=== PATIENT | male | born 1995 | race Caucasian/White ===

== ENCOUNTER 2017-06-21 15:00 | Outpatient (RCR) | payer BC, OTHER ==
[2017-06-07 09:16] VITALS: BP 124/77
[2017-06-07 09:23] VITALS: BP 102/68
[2017-06-07 09:25] LABS: PLATELET COUNT, AUTOMATED 279 K/uL (150-450)
--- NOTE | 2017-06-07 10:20 | RADIOLOGY IMAGING REPORT ---
FACILITY: [facility] PATIENT NAME: Chang Humphrey : 1995 MR: [id number] V: [id number] EXAM DATE: ORDERING PHYSICIAN: SIMA MACHADO TECHNOLOGIST: Location: [facility] [place] Patient: Chang Humphrey : 1995 Visit/Account:[id number] Date of Sevice: 06/07/2017 Exam type: CHEST PA AND LAT History: Testicular cancer follow-up Comparison: August 09, 2016 Findings: The lungs are free of acute effusions, infiltrates or edema. The cardiac silhouette is normal in siz e. The trachea is in midline.. Visualized bones are unremarkable IMPRESSION: 1. No acute cardiac pulmonary process is seen Report Dictated By: Cecelia Herbert MD at 06/07/2017 10:14 AM Report E-Signed By: Cecelia Herbert MD at 06/07/2017 10:15 AM WSN:[email or web address]
--- NOTE | 2017-06-07 10:54 | RADIOLOGY IMAGING REPORT ---
FACILITY: [facility] [place] PATIENT NAME: Chang Humphrey : 1995 MR: [id number] V: [id number] EXAM DATE: ORDERING PHYSICIAN: SIMA MACHADO TECHNOLOGIST: Location: [facility] - [place] Patient: Chang Humphrey : 1995 Visit/Account:[id number] Date of Sevice: 06/07/2017 ABDOMEN/PELVIS W/WO CONTRAST HISTORY: Testicular cancer TECHNIQUE: Axial images acquired through the abdomen/pelvis both with and without IV contrast.. Margarita nal and sagittal reformatting also performed. Dose Lowering Technique One of the following dose optimization techniques was utilized in the performance of this exam: Autom ated exposure control; adjustment of the mA and/or kV according to the patient's size; or use of an i terative reconstruction technique. Specific details can be referenced in the facility's radiology C T exam operational policy. CONTRAST: 75 mL Isovue-370 COMPARISON: None. FINDINGS: Visualized lung bases: Negative. Hepatobiliary: Negative. Spleen: Negative. Adrenals: Negative. Pancreas: Negative. Kidneys ureters and bladder: Negative. Genitalia: Negative. GI: Negative. Vessels/spaces/nodes: There are several shotty mesenteric lymph nodes . there are small fatty replaced bilateral inguinal lymph nodes. Bones/soft tissues: There is a surgical incision in the anterior lower left pelvis likely from prior orchiectomy no aggressive appearing bone lesions are seen Additional findings: None pertinent. IMPRESSION: There are several nonspecific shotty mesenteric lymph nodes. Also noted are small fatty replaced ing uinal lymph nodes No CT evidence of metastatic disease at this time Report Dictated By: Cecelia Herbert MD at 06/07/2017 10:41 AM Report E-Signed By: Cecelia Herbert MD at 06/07/2017 10:51 AM WSN:[email or web address]
[~2017-06-21 15:00] MED LIST: ALLO100T70 PO; DEX4 PO; IOPAMIDOL 76% 75 ML INFUS BTL 75 ML ONE; LOR1 PO; LORA-1455 PO; ONDA8TAB91 PO; PROC10TA4 PO
[2017-06-21 15:13] VITALS: BP 118/75
--- NOTE | 2017-06-23 16:50 | ONCOLOGY FOLLOW UP NOTE ---
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 ONCOLOGY HISTORY The patient is a 21-year-old male who presented with four month history of left testicular swelling. He had an ultrasound of the testicle done on March 17, 2016 which was positive for markedly enlarged and large complex neoplasm appearing lesion in the left testis measuring 7.7 x 5.8 x 4.7 cm. The right testicle measured 4.2 x 2.9 x 2.1 cm. The patient had a CT of chest, abdomen and pelvis done on March 21, 2016 and was notable for tiny nodules in the left lower lobe and right upper lobe, 2 to 3 mm in size. Tumor markers showed beta HCG 16.6, alpha fetoprotein normal; LDH was 507, elevated. 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 The tumor measured 6.8 cm in the greatest dimension and was confined with the testis. Lymphovascular invasion was positive. Tumor did not penetrate the tunica albuginea, tunica vaginalis or spermatic cord and surgical margins were free. PET-CT scan done on April 28, 2016 was negative for systemic metastasis. There was mild increased continuous metabolic activity in the face and left back , which is probably inflammatory in nature given he has acne. The patient started chemotherapy with BEP with bleomycin, etoposide and cisplatinum on May 01, 2016 with plan of one cycle. HISTORY OF PRESENT ILLNESS Patient is here today for follow-up of his mixed germ cell tumor. He is doing very well currently. He has some muscle aches after playing soccer yesterday, but other than that he is totally asymptomatic. PAST SURGICAL HISTORY 1. Left orchiectomy on March 21, 2016. 2. [place] tooth extraction. FAMILY HISTORY Paternal grandfather had prostate cancer. SOCIAL HISTORY The patient is single. He is a student. He is studying [employer]. He denies any abuse of tobacco, alcohol or illicit drugs. CURRENT MEDICATIONS None. ALLERGIES None. PAST MEDICAL HISTORY Insignificant. REVIEW OF SYSTEMS CONSTITUTIONAL: No appetite or weight change. No fever, chills or sweating. No recent infection. HEENT: Ears: No tinnitus or hearing problem. Nose: No nasal discharge or epistaxis. Throat: No sore throat or mouth ulcers. Eyes: No diplopia or visual changes. RESPIRATORY: No shortness of breath. No cough, expectoration or hemoptysis. CARDIOVASCULAR: No chest pain, orthopnea, or paroxysmal nocturnal dyspnea (PND) . No edema. No palpitations. GASTROINTESTINAL: No nausea or vomiting. No diarrhea or constipation. No change in bowel movements. No heartburn or swallowing difficulties. No abdominal pain. No jaundice. No hematemesis, melena or rectal bleeding. GENITOURINARY: No hematuria or dysuria. MUSCULOSKELETAL: No pain in the muscles, joints or bones. He has muscle aches after playing soccer yesterday. NEUROLOGICAL: No tingling or numbness in the hands or feet. No headaches or convulsions. HEMATOLOGIC/LYMPHATIC: No bleeding or easy bruising. No weakness or fatigue. No enlarged lymph nodes. SKIN: No skin rash or lumps. PSYCHIATRIC: No anxiety or depression. PHYSICAL EXAMINATION GENERAL: Looks stable. Well-developed, well-nourished, and in no acute distress. VITAL SIGNS: Blood pressure 118/75, pulse 101 per minute, respirations 16 per minute, temperature 98.8, pulse ox 94% on room air. HEENT: Head: Atraumatic. No sinus tenderness to palpation. Eyes: No icterus or conjunctivitis. Mouth and throat: No oral thrush or mucositis. NECK: Supple. No cervical or supraclavicular lymphadenopathy. LUNGS: Clear to auscultation and percussion bilaterally. HEART: Regular rate and rhythm. No gallops, murmurs, clicks or rubs. ABDOMEN: Soft and lax. No tenderness. No hepatosplenomegaly. No masses. EXTREMITIES: No cyanosis, clubbing or edema. LYMPHATICS: No peripheral lymphadenopathy. NEUROLOGICAL: Conscious, alert and oriented times three. No focal motor or sensory deficits. PSYCHIATRIC: Mood and affect appear normal. SKIN: No skin rash, bruise or purpuric eruption. DIAGNOSTIC DATA CBC showed a white count of 8.2, hemoglobin 16.8, hematocrit 48.9% and platelets 279,000. Chem panel totally normal except for total protein of 8.4. Alpha-fetoprotein is normal at 1 and Beta HCG is less than 2. 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 Tumor size was 6.8 cm with positive lymphovascular invasion with microscopic extension into the hilar soft tissue and the right testis noted focally. All margins were free of malignancy and the tumor was in the left testicle. The tumor marker with beta HCG was high at 16.6. The LDH was high at 517. Alpha-fetoprotein was normal. After surgery the markers returned back to normal. Because of the lymphovascular invasion the patient received one cycle of BEP with bleomycin, etoposide and cisplatin. Patient received that cycle on May 01, 2016 through May 05, 2016. He tolerated the chemo very well. His current tumor markers with beta HCG and alpha-fetoprotein are within the normal range. I am planning to continue followup. I will see him again in three months with CBC, chem panel, alpha-fetoprotein, beta HCG and LDH. PLAN 1. Continue followup. 2. Patient to return in three months with CBC, chem panel, alpha-fetoprotein, LDH and beta hCG. 3. Patient is to contact us for any new concern or complaints. ADDENDUM: CT abdomen and pelvis done on June 07, 2017 showed nonspecific shotty mesenteric lymph nodes. There are also noted small inguinal lymph nodes. Other than that the CT scan is normal. MTDD
== END 2017-06-29 14:50 | disposition home or self-care (01) ==
LOC: ONC 15:00
PROVIDERS: ATTEND Internal Medicine Hematology
DX: C62.92 Malignant neoplasm of left testis, unspecified whether descended or undescended (principal); Z92.21 Personal history of antineoplastic chemotherapy
CPT/HCPCS: 36415; 71046; 74178; 82105; 83615; 84702; 85025; 99212; Q9967; 82040; 82247; 82310; 82374; 82435; 82565; 82947; 84075; 84132; 84155; 84295; 84450; 84460; 84520

== ENCOUNTER 2017-10-05 08:00 | Outpatient (RCR) | payer BC, OTHER ==
[2017-09-25 08:38] VITALS: BP 118/81
[2017-09-25 09:01] LABS: PLATELET COUNT, AUTOMATED 270 K/uL (150-450)
[~2017-10-05 08:00] MED LIST changes: -IOPAMIDOL 76% 75 ML INFUS BTL 75 ML ONE
[2017-10-05 08:18] VITALS: BP 123/72
--- NOTE | 2017-10-05 16:12 | ONCOLOGY FOLLOW UP NOTE ---
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 ONCOLOGY HISTORY The patient is a 21-year-old male who presented with four month history of left testicular swelling. He had an ultrasound of the testicle done on March 17, 2016 which was positive for markedly enlarged and large complex neoplasm appearing lesion in the left testis measuring 7.7 x 5.8 x 4.7 cm. The right testicle measured 4.2 x 2.9 x 2.1 cm. The patient had a CT of chest, abdomen and pelvis done on March 21, 2016 and was notable for tiny nodules in the left lower lobe and right upper lobe, 2 to 3 mm in size. Tumor markers showed beta HCG 16.6, alpha fetoprotein normal; LDH was 507, elevated. 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 The tumor measured 6.8 cm in the greatest dimension and was confined with the testis. Lymphovascular invasion was positive. Tumor did not penetrate the tunica albuginea, tunica vaginalis or spermatic cord and surgical margins were free. PET-CT scan done on April 28, 2016 was negative for systemic metastasis. There was mild increased continuous metabolic activity in the face and left back , which is probably inflammatory in nature given he has acne. The patient started chemotherapy with BEP with bleomycin, etoposide and cisplatinum on May 01, 2016 with plan of one cycle. HISTORY OF PRESENT ILLNESS Patient is here today for follow-up of his mixed germ cell tumor. He is doing fine currently and he is totally asymptomatic. PAST MEDICAL HISTORY Insignificant, except for mixed germ cell tumor. PAST SURGICAL HISTORY 1. Left orchiectomy on March 21, 2016. 2. [place] tooth extraction. FAMILY HISTORY Paternal grandfather had prostate cancer. SOCIAL HISTORY The patient is single. 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 He denies any abuse of tobacco, alcohol or illicit drugs. CURRENT MEDICATIONS None. ALLERGIES None. REVIEW OF SYSTEMS CONSTITUTIONAL: No appetite or weight change. No fever, chills or sweating. No recent infection. HEENT: Ears: No tinnitus or hearing problem. Nose: No nasal discharge or epistaxis. Throat: No sore throat or mouth ulcers. Eyes: No diplopia or visual changes. RESPIRATORY: No shortness of breath. No cough, expectoration or hemoptysis. CARDIOVASCULAR: No chest pain, orthopnea, or paroxysmal nocturnal dyspnea (PND) . No edema. No palpitations. GASTROINTESTINAL: No nausea or vomiting. No diarrhea or constipation. No change in bowel movements. No heartburn or swallowing difficulties. No abdominal pain. No jaundice. No hematemesis, melena or rectal bleeding. GENITOURINARY: No hematuria or dysuria. MUSCULOSKELETAL: No pain in the muscles, joints or bones. He has muscle aches after playing soccer yesterday. NEUROLOGICAL: No tingling or numbness in the hands or feet. No headaches or convulsions. HEMATOLOGIC/LYMPHATIC: No bleeding or easy bruising. No weakness or fatigue. No enlarged lymph nodes. SKIN: No skin rash or lumps. PSYCHIATRIC: No anxiety or depression. PHYSICAL EXAMINATION GENERAL: Looks stable. Well-developed, well-nourished, and in no acute distress. VITAL SIGNS: Blood pressure 123/72, pulse 75 per minute, respirations 16 per minute, temperature 98.1, pulse ox 95% on room air. HEENT: Head: Atraumatic. No sinus tenderness to palpation. Eyes: No icterus or conjunctivitis. Mouth and throat: No oral thrush or mucositis. NECK: Supple. No cervical or supraclavicular lymphadenopathy. LUNGS: Clear to auscultation and percussion bilaterally. HEART: Regular rate and rhythm. No gallops, murmurs, clicks or rubs. ABDOMEN: Soft and lax. No tenderness. No hepatosplenomegaly. No masses. EXTREMITIES: No cyanosis, clubbing or edema. LYMPHATICS: No peripheral lymphadenopathy. NEUROLOGICAL: Conscious, alert and oriented times three. No focal motor or sensory deficits. PSYCHIATRIC: Mood and affect appear normal. SKIN: No skin rash, bruise or purpuric eruption. DIAGNOSTIC DATA CBC showed a white count of 8.4, hemoglobin 16.7, hematocrit 47.8, platelets 270 ,000. Chem panel totally normal except. Alpha-fetoprotein is normal at 2, Beta HCG is normal at less than 2 and LDH is normal at 340. 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 Tumor measured was 6.8 cm in the greatest dimension and was confined to the testis. Lymphovascular invasion was positive. Tumor did not penetrate the tunica albuginea, tunica vaginalis or spermatic cord and surgical margins were free. Patient received one cycle of BEP with bleomycin, etoposide and cisplatin after his surgery because of the lymphovascular invasion. He received that cycle between May 01, 2016 through May 05, 2016. He is doing very well currently. His tumor marker with LDH, beta HCG and alpha fetoprotein all came within the normal range. I am planning to continue followup. I will see him again in three months with CBC , chem panel, alpha-fetoprotein, beta HCG and LDH. PLAN 1. Continue followup. 2. Patient to return in three months with CBC, chem panel, alpha-fetoprotein, LDH and beta hCG. 3. Patient is to contact us for any new concern or complaints. ZINA
== END 2017-10-09 14:22 | disposition home or self-care (01) ==
LOC: ONC 08:00
PROVIDERS: ATTEND Internal Medicine Hematology
DX: C62.92 Malignant neoplasm of left testis, unspecified whether descended or undescended (principal); Z92.21 Personal history of antineoplastic chemotherapy
CPT/HCPCS: 36415; 82040; 82105; 82247; 82310; 82374; 82435; 82565; 82947; 83615; 84075; 84132; 84155; 84295; 84450; 84460; 84520; 84702; 85025; 99212

== ENCOUNTER 2018-01-18 14:55 | Outpatient (RCR) | payer BC, OTHER ==
[2018-01-09 09:17] VITALS: BP 122/78
[2018-01-09 09:21] LABS: PLATELET COUNT, AUTOMATED 281 K/uL (150-450)
[2018-01-18 15:06] VITALS: BP 132/90
--- NOTE | 2018-01-19 19:50 | ONCOLOGY FOLLOW UP NOTE ---
EVENT DATE: January 18, 2018 DIAGNOSIS Stage I (pT2 pNX cM0) mixed germ cell tumor. 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 ONCOLOGY HISTORY The patient is a 22-year-old male who presented with a four-month history of left testicular swelling. He had an ultrasound of the testicle done on March 17, 2016, which was positive for markedly enlarged and large complex neoplasm- appearing lesion in the left testis measuring 7.7 x 5.8 x 4.7 cm. The right testicle measured 4.2 x 2.9 x 2.1 cm. The patient had a CT of chest, abdomen, and pelvis done on March 21, 2016, and it was notable for tiny nodules in the left lower lobe and right upper lobe, 2 to 3 mm in size. Tumor markers showed beta hCG 16.6, alpha-fetoprotein normal. LDH was 507, elevated. 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 The tumor measured 6.8 cm in the greatest dimension and was confined with the testis. Lymphovascular invasion was positive. Tumor did not penetrate the tunica albuginea, tunica vaginalis, or spermatic cord, and surgical margins were free. PET/CT scan done on April 28, 2016, was negative for systemic metastasis. There was mild increased continuous metabolic activity in the face and left back which was probably inflammatory in nature given he has acne. The patient started chemotherapy with BEP with bleomycin, etoposide, and cisplatinum on May 01, 2016, with plan of one cycle. HISTORY OF PRESENT ILLNESS Patient is here today for followup of his mixed germ cell tumor. He is doing fine currently, and he is totally asymptomatic today. PAST MEDICAL HISTORY Insignificant except for mixed germ cell tumor. PAST SURGICAL HISTORY 1. Left orchiectomy on March 21, 2016. 2. [place] tooth extraction. FAMILY HISTORY Paternal grandfather had prostate cancer. SOCIAL HISTORY The patient is single. He is a student. He is studying [employer]. He denies any abuse of tobacco, alcohol, or illicit drugs. CURRENT MEDICATIONS None. ALLERGIES None. REVIEW OF SYSTEMS CONSTITUTIONAL: No appetite or weight change. No fever, chills, or sweating. No recent infection. HEENT: Ears: No tinnitus or hearing problem. Nose: No nasal discharge or epistaxis. Throat: No sore throat or mouth ulcers. Eyes: No diplopia or visual changes. RESPIRATORY: No shortness of breath. No cough, expectoration, or hemoptysis. CARDIOVASCULAR: No chest pain, orthopnea, or paroxysmal nocturnal dyspnea (PND). No edema. No palpitations. GASTROINTESTINAL: No nausea or vomiting. No diarrhea or constipation. No change in bowel movements. No heartburn or swallowing difficulties. No abdominal pain. No jaundice. No hematemesis, melena, or rectal bleeding. GENITOURINARY: No hematuria or dysuria. MUSCULOSKELETAL: No pain in the muscles, joints, or bones. NEUROLOGICAL: No tingling or numbness in the hands or feet. No headaches or convulsions. HEMATOLOGIC/LYMPHATIC: No bleeding or easy bruising. No weakness or fatigue. No enlarged lymph nodes. SKIN: No skin rash or lumps. PSYCHIATRIC: No anxiety or depression. PHYSICAL EXAMINATION GENERAL: Looks stable. Well developed, well nourished, and in no acute distress. VITAL SIGNS: Blood pressure 132/80, pulse 98 per minute, respirations 16 per minute, temperature 98.5, pulse oximetry 94% on room air. HEENT: Head: Atraumatic. No sinus tenderness to palpation. Eyes: No icterus or conjunctivitis. Mouth and throat: No oral thrush or mucositis. NECK: Supple. No cervical or supraclavicular lymphadenopathy. LUNGS: Clear to auscultation and percussion bilaterally. HEART: Regular rate and rhythm. No gallops, murmurs, clicks, or rubs. ABDOMEN: Soft and lax. No tenderness. No hepatosplenomegaly. No masses. EXTREMITIES: No cyanosis, clubbing, or edema. LYMPHATICS: No peripheral lymphadenopathy. NEUROLOGICAL: Conscious, alert, and oriented times three. No focal motor or sensory deficits. PSYCHIATRIC: Mood and affect appear normal. SKIN: No skin rash, bruise, or purpuric eruption. DIAGNOSTIC DATA CBC showed white count 7.7, hemoglobin 16.8, hematocrit 48, platelets 251. Chem panel totally normal except BUN 22. Alpha-fetoprotein is 1. hCG has risen, too. Both abnormal. 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 Tumor measured 6.8 cm in the greatest dimension and was confined to the testis. Lymphovascular invasion was positive. Tumor did not penetrate the tunica albuginea, tunica vaginalis, or spermatic cord, and surgical margins were free. Patient received one cycle of BEP with bleomycin, etoposide, and cisplatin after his surgery because of the lymphovascular invasion. He received that cycle between May 01, 2016, through May 05, 2016. He is currently in complete remission. His tumor markers with LDH, beta hCG, and alpha-fetoprotein are all within the normal range. I am planning to continue followup. I will see him again in three months with CBC, chemistry panel, alpha-fetoprotein, LDH, and beta hCG. PLAN 1. Continue followup. 2. Patient to return in three months with CBC, chem panel, alpha-fetoprotein, LDH, and beta hCG. 3. Patient is to contact us for any new concerns or complaints. ZINA
== END 2018-01-30 08:39 | disposition home or self-care (01) ==
LOC: ONC 14:55
PROVIDERS: ATTEND Internal Medicine Hematology
DX: C62.92 Malignant neoplasm of left testis, unspecified whether descended or undescended (principal); Z92.21 Personal history of antineoplastic chemotherapy
CPT/HCPCS: 36415; 82040; 82105; 82247; 82310; 82374; 82435; 82565; 82947; 83615; 84075; 84132; 84155; 84295; 84450; 84460; 84520; 84702; 85025; 99212

== ENCOUNTER 2018-05-03 09:30 | Outpatient (RCR) | payer BC, OTHER ==
[2018-04-25 13:12] VITALS: BP 132/76
[2018-04-25 13:37] LABS: PLATELET COUNT, AUTOMATED 312 K/uL (150-450)
[2018-05-03 09:38] VITALS: BP 122/75
--- NOTE | 2018-05-03 12:37 | [facility] ONCOLOGY NOTE ---
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 ONCOLOGY HISTORY The patient is a 22-year-old male who presented with a four-month history of left testicular swelling. He had an ultrasound of the testicle done on March 17, 2016, which was positive for markedly enlarged and large complex neoplasm- appearing lesion in the left testis measuring 7.7 x 5.8 x 4.7 cm. The right testicle measured 4.2 x 2.9 x 2.1 cm. The patient had a CT of chest, abdomen, and pelvis done on March 21, 2016, and it was notable for tiny nodules in the left lower lobe and right upper lobe, 2 to 3 mm in size. Tumor markers showed beta hCG 16.6, alpha-fetoprotein normal. LDH was 507, elevated. 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 The tumor measured 6.8 cm in the greatest dimension and was confined with the testis. Lymphovascular invasion was positive. Tumor did not penetrate the tunica albuginea, tunica vaginalis, or spermatic cord, and surgical margins were free. PET/CT scan done on April 28, 2016, was negative for systemic metastasis. There was mild increased continuous metabolic activity in the face and left back which was probably inflammatory in nature given he has acne. The patient started chemotherapy with BEP with bleomycin, etoposide, and cisplatinum on May 01, 2016, with plan of one cycle. HISTORY OF PRESENT ILLNESS Patient is here today for followup of his mixed germ cell tumor. He is doing fine currently and he is totally asymptomatic today. PAST MEDICAL HISTORY Insignificant except for mixed germ cell tumor. PAST SURGICAL HISTORY 1. Left orchiectomy on March 21, 2016. 2. [place] tooth extraction. FAMILY HISTORY Paternal grandfather had prostate cancer. SOCIAL HISTORY The patient is single. He is a student. He is studying business [employer] He denies any abuse of tobacco, alcohol, or illicit drugs. CURRENT MEDICATIONS None. ALLERGIES None. REVIEW OF SYSTEMS CONSTITUTIONAL: No appetite or weight change. No fever, chills, or sweating. No recent infection. HEENT: Ears: No tinnitus or hearing problem. Nose: No nasal discharge or epistaxis. Throat: No sore throat or mouth ulcers. Eyes: No diplopia or visual changes. RESPIRATORY: No shortness of breath. No cough, expectoration, or hemoptysis. CARDIOVASCULAR: No chest pain, orthopnea, or paroxysmal nocturnal dyspnea (PND). No edema. No palpitations. GASTROINTESTINAL: No nausea or vomiting. No diarrhea or constipation. No change in bowel movements. No heartburn or swallowing difficulties. No abdominal pain. No jaundice. No hematemesis, melena, or rectal bleeding. GENITOURINARY: No hematuria or dysuria. MUSCULOSKELETAL: No pain in the muscles, joints, or bones. NEUROLOGICAL: No tingling or numbness in the hands or feet. No headaches or convulsions. HEMATOLOGIC/LYMPHATIC: No bleeding or easy bruising. No weakness or fatigue. No enlarged lymph nodes. SKIN: No skin rash or lumps. PSYCHIATRIC: No anxiety or depression. PHYSICAL EXAMINATION GENERAL: Looks stable. Well developed, well nourished, and in no acute distress. VITAL SIGNS: Blood pressure 122/75, pulse 93 per minute, respirations 16 per minute, temperature 97.8, pulse oximetry 92% on room air. HEENT: Head: Atraumatic. No sinus tenderness to palpation. Eyes: No icterus or conjunctivitis. Mouth and throat: No oral thrush or mucositis. NECK: Supple. No cervical or supraclavicular lymphadenopathy. LUNGS: Clear to auscultation and percussion bilaterally. HEART: Regular rate and rhythm. No gallops, murmurs, clicks, or rubs. ABDOMEN: Soft and lax. No tenderness. No hepatosplenomegaly. No masses. EXTREMITIES: No cyanosis, clubbing, or edema. LYMPHATICS: No peripheral lymphadenopathy. NEUROLOGICAL: Conscious, alert, and oriented times three. No focal motor or sensory deficits. PSYCHIATRIC: Mood and affect appear normal. SKIN: No skin rash, bruise, or purpuric eruption. DIAGNOSTIC DATA CBC showed white count 8.5, hemoglobin 16.4, hematocrit 48.4, platelets 312. Chem panel totally normal except chloride 111. Alpha-fetoprotein is normal at 1. Beta hCG is normal at less than 2 and LDH is normal at 376. 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 Tumor measured 6.8 cm in the greatest dimension and was confined to the testis. Lymphovascular invasion was positive. Tumor did not penetrate the tunica albuginea, tunica vaginalis or spermatic cord and surgical margins were free. Patient received one cycle of BEP with bleomycin, etoposide, and cisplatin after his surgery because of the lymphovascular invasion. He received that cycle between May 01, 2016, through May 05, 2016. He is currently in complete remission. His tumor markers with LDH, beta hCG, and alpha-fetoprotein are all within the normal range. Patient is totally asymptomatic and serum condition is perfect. I am planning to continue followup. I will see him again in three months with CBC, chem panel, alpha-fetoprotein, beta hCG and LDH. PLAN 1. Continue followup. 2. Patient to return in three months with CBC, chem panel, alpha-fetoprotein, LDH, and beta hCG. 3. Patient is to contact us for any new concerns or complaints. ZINA
== END 2018-05-21 08:54 | disposition home or self-care (01) ==
LOC: ONC 09:30
PROVIDERS: ATTEND Internal Medicine Hematology
DX: C62.92 Malignant neoplasm of left testis, unspecified whether descended or undescended (principal); Z92.21 Personal history of antineoplastic chemotherapy
CPT/HCPCS: 36415; 82040; 82105; 82247; 82310; 82374; 82435; 82565; 82947; 83615; 84075; 84132; 84155; 84295; 84450; 84460; 84520; 84702; 85025; 99212

== ENCOUNTER 2018-08-08 08:00 | Outpatient (RCR) | payer BC, OTHER ==
[2018-08-01 08:45] LABS: PLATELET COUNT, AUTOMATED 283 K/uL (150-450)
[2018-08-08 08:10] VITALS: BP 108/69
--- NOTE | 2018-08-08 16:03 | ONCOLOGY FOLLOW UP NOTE ---
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 CHIEF COMPLAINT Chang is here today for ongoing quarterly followup of his nonseminoma mixed germ cell tumor. ONCOLOGY HISTORY The patient is a 22-year-old male who presented with a four-month history of left testicular swelling. He had an ultrasound of the testicle done on March 17, 2016, which was positive for markedly enlarged and large complex neoplasm- appearing lesion in the left testis measuring 7.7 x 5.8 x 4.7 cm. The right testicle measured 4.2 x 2.9 x 2.1 cm. The patient had a CT of chest, abdomen, and pelvis done on March 21, 2016, and it was notable for tiny nodules in the left lower lobe and right upper lobe, 2 to 3 mm in size. Tumor markers showed beta hCG 16.6, alpha-fetoprotein normal. LDH was 507, elevated. 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 The tumor measured 6.8 cm in the greatest dimension and was confined within the testis. Lymphovascular invasion was positive. Tumor did not penetrate the tunica albuginea, tunica vaginalis, or spermatic cord, and surgical margins were free. PET/CT scan done on April 28, 2016, was negative for systemic metastasis. There was mild increased continuous metabolic activity in the face and left back which was probably inflammatory in nature given he has acne. The patient started chemotherapy with BEP with bleomycin, etoposide, and cisplatinum on May 01, 2016, with plan of one cycle. HISTORY OF PRESENT ILLNESS Chang is here today for ongoing followup for his mixed germ cell tumor. He reports doing well. He remains completely asymptomatic. He is attending the university and is getting ready to graduate later this month. He has not had any changes in his overall health. He has no complaints of pain. Energy level is good. PAST MEDICAL HISTORY Insignificant except for mixed germ cell tumor. PAST SURGICAL HISTORY 1. Left orchiectomy on March 21, 2016. 2. [place] tooth extraction. FAMILY HISTORY Paternal grandfather had prostate cancer. SOCIAL HISTORY The patient is single. 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 He denies any abuse of tobacco, alcohol, or illicit drugs. CURRENT MEDICATIONS None. ALLERGIES None. REVIEW OF SYSTEMS CONSTITUTIONAL: Patient denies any recent fevers, chills, or night sweats. No recent infections. HEENT: No vision changes. No tinnitus. No dysphagia, odynophagia, or mouth sores. RESPIRATORY: No shortness of breath. No cough, sputum production, or hemoptysis. CARDIOVASCULAR: No chest pain, syncope, or presyncope. GASTROINTESTINAL: No abdominal pain, nausea, vomiting, constipation, diarrhea, bright red blood per rectum, or melena. Appetite is normal. GENITOURINARY: No dysuria, hematuria, genitourinary discharge, or testicular pain. He is status post left orchiectomy. MUSCULOSKELETAL: No focal areas of pain in the muscles, joints, or bones. NEUROLOGIC: No headaches, numbness, tingling, or seizure-like activity. HEMATOLOGIC/LYMPHATIC: He denies any bleeding or easy bruising. ENDOCRINE: No heat or cold intolerance. Energy levels are stable. SKIN: No complaints of rash, suspicious lumps, or generalized pruritus. PSYCHIATRIC: He denies any severe anxiety, severe depression, suicidal or homicidal ideation. The remainder of a 12-point review of systems is performed today and is otherwise negative. PHYSICAL EXAMINATION VITAL SIGNS: Weight 76.0 kg. T 97.3, P 87, R 16, BP 108/69, oxygen saturation 94% room air. Pain level "0/10." Fatigue level "0/10." GENERAL: In general, this is a pleasant, young 22-year-old gentleman who appears well hydrated, well nourished, and is in no acute distress. HEAD: Atraumatic, normocephalic. EYES: Sclerae anicteric. ENT, MOUTH: Moist mucous membranes. No mucositis. NECK: Supple. No lymphadenopathy. LUNGS: Clear to auscultation bilaterally. No focal findings. HEART: Regular rate and rhythm. No ectopy. ABDOMEN: Soft, nontender, nondistended. Bowel sounds positive x4. No organomegaly. EXTREMITIES: No clubbing, cyanosis, or edema. NEUROLOGIC: Patient is awake, alert, and oriented x3. PSYCHIATRIC: Mood and affect are appropriate. DERM: No rash, petechiae, or purpura. MUSCULOSKELETAL: Gait and ambulation are steady. LABORATORY Labs on 08/01/2018: CBC: WBC 7.2, ANC 4.1, hemoglobin 15.6, hematocrit 46.0%, platelets 283,000. Red blood cell indices are normal, and CBC was completely unremarkable. AFP: 1, normal. Beta-hCG: Less than 2, normal. LDH: 343. CMP: Completely normal, to include normal sodium at 143, potassium 4.5, serum creatinine 0.80. Calcium 9.5, total bilirubin 0.5, AST 18, ALT 9, alkaline phosphatase 73. 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 Tumor measured 6.8 cm in the greatest dimension and was confined to the testis. Lymphovascular invasion was positive. Tumor did not penetrate the tunica albuginea, tunica vaginalis, or spermatic cord, and surgical margins were free. Patient received one cycle of BEP with bleomycin, etoposide, and cisplatin after his surgery because of the lymphovascular invasion. He received that cycle between May 01, 2016, through May 05, 2016. He remains in complete remission. He just had tumor markers done last week, which were all within normal range as noted above. He remains asymptomatic and is overall doing well. We are going to continue with followup quarterly. 1. Reviewed labs with patient today. 2. We will continue with quarterly follow-up. 3. Patient will return to clinic in three months for followup with MD. 4. We will obtain labs in three months prior to his followup visit with labs to include CBC, CMP, LDH, AFP (alpha-fetoprotein), and beta-hCG. ZINA
== END 2018-10-28 ==
LOC: ONC 08:00
PROVIDERS: ATTEND Internal Medicine Hematology
DX: Z85.47 Personal history of malignant neoplasm of testis (principal); Z92.21 Personal history of antineoplastic chemotherapy
CPT/HCPCS: 36415; 82040; 82105; 82247; 82310; 82374; 82435; 82565; 82947; 83615; 84075; 84132; 84155; 84295; 84450; 84460; 84520; 84702; 85025; 99212